=== PATIENT | female | born 1965 | race Caucasian/White ===

== ENCOUNTER 2016-08-12 17:58 | Observation (INO) | payer OTHER ==
[~2016-08-12] VITALS: Ht 165.1 cm; Wt 82.1 kg
[~2016-08-12 17:58] MED LIST: HYDROCODON-ACE1 EAC7 PO; MOBIC7.5 MG PO
[2016-08-12 19:10] LABS: MCHC 32.7 G/DL (30.0-36.0); MCV 88.7 FL (83-99); MEAN PLAT.VOLUME 10.6 uM^3 (9.5-12.4); PLATELET COUNT 287 K/uL (156-360); RBC DIS.WIDTH-CV 12.6 % (11.8-14.6); RBC DIS.WIDTH-SD 40.3 % (39-53); RED BLOOD COUNT 4.62 M/uL (3.80-5.20); WHITE BLOOD COUNT 6.4 K/uL (4.1-10.2)
[2016-08-12 19:16] LABS: CHLORIDE 104 mEq/L (99-109); POTASSIUM 3.6 mEq/L (3.7-5.4); SODIUM 142 mEq/L (136-147)
[2016-08-12 19:17] LABS: GLUCOSE 97 mg/dL (70-99)
[2016-08-12 19:19] LABS: ANION GAP 12 MEQ/L (2-14)
[2016-08-12 19:21] LABS: GFR ESTIMATE (CALCULATED) > 59 mL/min/
[2016-08-12 19:22] LABS: UREA NITROGEN (BUN) 11 mg/dL (9-23)
[2016-08-12 19:27] LABS: TROP-I INTERPRETATION NEGATIVE; TROPONIN-I < 0.01 ng/mL (0.0-0.30)
[2016-08-12] MEDS ORDERED: SYNTHROID88 MCG PO (20:53)
[2016-08-12] MEDS ORDERED: ZANTAC150 MG PO (21:04)
[2016-08-12 22:20] VITALS: BP 146/99
== END 2016-08-12 22:25 | disposition left against medical advice (07) ==
LOC: EME 17:58 → EDOF 21:13
DX: R07.9 Chest pain, unspecified (principal); E03.9 Hypothyroidism, unspecified; R00.2 Palpitations; M79.602 Pain in left arm
CPT/HCPCS: 71020; 80048; 84484; 85027; 93005; 99281; 99284; G0378

== ENCOUNTER 2017-05-14 23:26 | Inpatient (IN) | payer OTHER ==
[~2017-05-14] VITALS: Ht 165.1 cm; Wt 88.1 kg
[~2017-05-14 23:26] MED LIST changes: +SYNTHROID88 MCG PO; +ZANTAC150 MG PO
[2017-05-15] LABS: HEMATOCRIT 37.8 % (36.0-46.0); MCH 29.8 PG (29.0-34.0); MCHC 32.8 G/DL (30.0-36.0); MCV 90.9 FL (83-99); MEAN PLAT.VOLUME 10.2 uM^3 (9.5-12.4); PLATELET COUNT 282 K/uL (156-360); RBC DIS.WIDTH-SD 43.3 % (39-53); RED BLOOD COUNT 4.16 M/uL (3.80-5.20)
[2017-05-15 00:16] LABS: CHLORIDE 106 mEq/L (99-109); POTASSIUM 3.8 mEq/L (3.7-5.4); SODIUM 138 mEq/L (136-147)
[2017-05-15 00:17] LABS: GLUCOSE 116 mg/dL (70-99)
[2017-05-15 00:19] LABS: ANION GAP 8 MEQ/L (2-14)
[2017-05-15 00:21] LABS: GFR ESTIMATE (CALCULATED) > 59 mL/min/
[2017-05-15 00:22] LABS: UREA NITROGEN (BUN) 19 mg/dL (9-23)
[2017-05-15 00:26] LABS: TROP-I INTERPRETATION INDETERMINATE; TROPONIN-I 0.31 ng/mL (0.0-0.30)
[2017-05-15 01:00] LABS: INTER. NORMALIZED RATIO 0.9; PROTHROMBIN TIME 10.6 SEC (10.2-12.9)
[2017-05-15 01:03] LABS: PTT 29.9 SEC (25-37)
[2017-05-15] MEDS ORDERED: LEVOTHYROXINE88 MCG PO (02:14)
[2017-05-15] MEDS ORDERED: TYLENOL EXTRA500 MG PO (02:15)
[2017-05-15] MEDS ORDERED: ALEVE220 MG PO (02:16)
[2017-05-15 03:32] LABS: TOTAL BILIRUBIN 0.1 mg/dL (0.0-1.0)
[2017-05-15 03:33] LABS: ALKALINE PHOSPHATASE 85 IU/L (3-129)
[2017-05-15 03:35] LABS: DIRECT BILIRUBIN 0.1 mg/dL (0.0-0.3)
[2017-05-15 06:49] VITALS: BP 129/78
[2017-05-15 07:44] LABS: MCH 29.2 PG (29.0-34.0); MCHC 32.1 G/DL (30.0-36.0); MCV 90.9 FL (83-99); MEAN PLAT.VOLUME 10.2 uM^3 (9.5-12.4); PLATELET COUNT 264 K/uL (156-360); RBC DIS.WIDTH-CV 13.1 % (11.8-14.6); RBC DIS.WIDTH-SD 43.3 % (39-53); RED BLOOD COUNT 4.18 M/uL (3.80-5.20); WHITE BLOOD COUNT 6.9 K/uL (4.1-10.2)
[2017-05-15 08:04] LABS: TROP-I INTERPRETATION NEGATIVE; TROPONIN-I 0.22 ng/mL (0.0-0.30)
[2017-05-15 09:47] LABS: ANION GAP 8 MEQ/L (2-14); CHLORIDE 106 MEQ/L (99-109); GFR ESTIMATE (CALCULATED) > 59 mL/min/; GLUCOSE 105 mg/dL (70-99); HDL CHOLESTEROL 54 MG/DL (Desirable>=50); LDL CHOLESTEROL 110 mg/dL (Desirable<100); NON-HDL CHOLESTEROL 123 mg/dL (Desirable<160); SAMPLE HEMOLYSIS CHECK 0; SAMPLE ICTERIC CHECK 0; SAMPLE LIPEMIA CHECK 0; SODIUM 140 MEQ/L (136-147); TOTAL CHOLESTEROL 177 mg/dL (Desirable<200); TRIGLYCERIDES 67 MG/DL (Normal: <150); UREA NITROGEN (BUN) 14 mg/dL (9-23)
[2017-05-15 11:15] VITALS: BP 124/78
[2017-05-15 14:33] LABS: TROP-I INTERPRETATION NEGATIVE; TROPONIN-I 0.17 ng/mL (0.0-0.30)
[2017-05-15 15:07] VITALS: BP 123/67
[2017-05-15 20:09] VITALS: BP 114/57
[2017-05-15 23:55] VITALS: BP 103/57
[2017-05-16 04:00] VITALS: BP 119/60
[2017-05-16 06:09] LABS: BASOPHIL COUNT 0.1 K/uL (0-0.1); EOSINOPHIL (%) 2.7 % (0-5); EOSINOPHIL COUNT 0.2 K/uL (0-0.3); HEMATOCRIT 38.7 % (36.0-46.0); IMMATURE GRANULOCYTE (%) 0.3 % (0.0-0.7); INSTRUMENT ABS NEUTROPHIL CT 3.9 K/uL; LYMPHOCYTE COUNT 2.8 K/uL (1.0-2.8); MCH 29.6 PG (29.0-34.0); MCHC 32.3 G/DL (30.0-36.0); MCV 91.5 FL (83-99); MEAN PLAT.VOLUME 10.7 uM^3 (9.5-12.4); MONOCYTE (%) 7.1 % (3-12); MONOCYTE COUNT 0.5 K/uL (0-0.8); NEUTROPHIL (%) 51.4 % (45-76); NEUTROPHIL COUNT 3.9 K/uL (1.8-6.4); PLATELET COUNT 256 K/uL (156-360); RBC DIS.WIDTH-SD 43.4 % (39-53); RED BLOOD COUNT 4.23 M/uL (3.80-5.20); WHITE BLOOD COUNT 7.5 K/uL (4.1-10.2)
[2017-05-16 06:39] LABS: ALKALINE PHOSPHATASE 67 IU/L (3-129); ANION GAP 8 MEQ/L (2-14); CHLORIDE 108 MEQ/L (99-109); GFR ESTIMATE (CALCULATED) > 59 mL/min/; GLUCOSE 94 mg/dL (70-99); POTASSIUM 4.5 MEQ/L (3.7-5.4); SAMPLE HEMOLYSIS CHECK 0; SAMPLE ICTERIC CHECK 0; SAMPLE LIPEMIA CHECK 0; SODIUM 143 MEQ/L (136-147); TOTAL BILIRUBIN 0.4 MG/DL (0.0-1.0); UREA NITROGEN (BUN) 11 mg/dL (9-23)
[2017-05-16 08:00] VITALS: BP 108/62
[2017-05-16 12:22] VITALS: BP 127/69
[2017-05-16 16:50] VITALS: BP 125/68
[2017-05-16 19:30] VITALS: BP 120/58
[2017-05-17 00:24] VITALS: BP 120/56
[2017-05-17 04:07] VITALS: BP 119/66
[2017-05-17 06:30] LABS: HEMATOCRIT 38.3 % (36.0-46.0); MCH 28.9 PG (29.0-34.0); MCHC 32.1 G/DL (30.0-36.0); MCV 89.9 FL (83-99); MEAN PLAT.VOLUME 10.2 uM^3 (9.5-12.4); PLATELET COUNT 271 K/uL (156-360); RBC DIS.WIDTH-CV 12.8 % (11.8-14.6); RBC DIS.WIDTH-SD 42.1 % (39-53); RED BLOOD COUNT 4.26 M/uL (3.80-5.20)
[2017-05-17 08:16] VITALS: BP 165/71
[2017-05-17] MEDS ORDERED: ASPIR-LOW81 MG PO (12:26)
[2017-05-17] MEDS ORDERED: ATORVASTATIN CA40 MG PO (12:26)
[2017-05-17 14:46] VITALS: BP 170/75
== END 2017-05-17 15:24 | disposition home or self-care (01) | DRG 282 ==
LOC: EME 23:26 → 4EAST 05-15 02:43 → EDOF 05-15 02:43 → ENRESERV 05-15 02:43 → 4EAST 05-15 03:45
PROVIDERS: Hospitalist
DX: I21.4 Non-ST elevation (NSTEMI) myocardial infarction (principal); E03.9 Hypothyroidism, unspecified; I11.9 Hypertensive heart disease without heart failure; M19.90 Unspecified osteoarthritis, unspecified site; E66.9 Obesity, unspecified; Z68.31 Body mass index [BMI] 31.0-31.9, adult; Z82.49 Family history of ischemic heart disease and other diseases of the circulatory system; Z87.11 Personal history of peptic ulcer disease; Z91.19 Patient's noncompliance with other medical treatment and regimen; Z23 Encounter for immunization
CPT/HCPCS: 71020; 71275; 80048; 80053; 80061; 80076; 84484; 85025; 85027; 85347; 85610; 85730; 87502; 90686; 93005; 94010; 99202; 99281; 99285; C1769; C1887; J1644; J2250; J3010